=== PATIENT | female | born 1950 | race African-American/Black ===

== ENCOUNTER 2019-03-31 06:24 | Emergency (ER) | payer OTHER ==
[~2019-03-31] VITALS: Ht 157.5 cm; Wt 72.6 kg
[~2019-03-31 06:24] MED LIST: BENADRYL25 MG PO; DYRENIUM100 MG PO; FLONASE 0.05%50 MCG NASAL; MAXZIDE-25 MG1 EACH PO; MEDROL DOSPAK21 TAB PO; PEPCID20 MG PO; PROTONIX40 M2 PO; TRAMADOL 50 MG50 MG PO; TRIAMCINOLONE A15 G1 TP; [UNRECOGNIZED DRUG - OTHER]
[2019-03-31] MEDS ORDERED: OMEPRAZOLE40 MG PO (06:33)
[2019-03-31] MEDS ORDERED: CLARITIN10 MG PO (06:33)
[2019-03-31] MEDS ORDERED: ALENDRONATE SOD70 MG PO (06:33)
[2019-03-31 06:55] LABS: ABSOLUTE NEUTROPHILS 2.2 thou/uL (1.4-8.2); BASOPHILS 1.4 % (0.0-2.0); EOSINOPHILS 4.9 % (0.0-3.0); HEMATOCRIT 41.6 % (37.0-47.0); HEMOGLOBIN 13.4 gm/dL (12.0-15.0); LYMPHOCYTES 38.7 % (24.0-44.0); MCH 25.1 pg (26.0-34.0); MCHC 32.2 g/dL (28.0-37.0); MCV 78.1 fL (80.0-100.0); MONOCYTES 8.8 % (1.0-8.0); PLATELET COUNT 132 thou/uL (150-400); POLYS 46.2 % (36.0-66.0); RBC 5.33 mil/uL (4.20-5.00); RDW 15.4 % (10.5-14.5); WBC 4.7 thou/uL (4.0-11.0)
[2019-03-31 07:04] LABS: POTASSIUM 3.8 mmol/L (3.5-5.1)
[2019-03-31 07:10] LABS: ALBUMIN 3.5 g/dL (3.4-5.0); TOTAL BILIRUBIN 0.5 mg/dL (<0.1-1.0); TOTAL PROTEIN 7.2 g/dL (6.4-8.2)
[2019-03-31 07:43] VITALS: BP 151/78
== END 2019-03-31 08:04 | disposition home or self-care (01) ==
LOC: ER 06:24
PROVIDERS: Emergency Medicine
DX: T17.328A Food in larynx causing other injury, initial encounter (principal); I10 Essential (primary) hypertension; J45.909 Unspecified asthma, uncomplicated; K74.60 Unspecified cirrhosis of liver; Z90.710 Acquired absence of both cervix and uterus; Z98.890 Other specified postprocedural states; Z88.8 Allergy status to other drugs, medicaments and biological substances; X58.XXXA Exposure to other specified factors, initial encounter; Y93.89 Activity, other specified; Y92.89 Other specified places as the place of occurrence of the external cause; Y99.8 Other external cause status

== ENCOUNTER 2019-04-25 22:41 | Emergency (ER) | payer OTHER ==
[~2019-04-25] VITALS: Ht 157.5 cm; Wt 72.6 kg
[~2019-04-25 22:41] MED LIST changes: +ALENDRONATE SOD70 MG PO; +CLARITIN10 MG PO; +OMEPRAZOLE40 MG PO
[2019-04-25 23:39] LABS: ABSOLUTE NEUTROPHILS 7.5 thou/uL (1.4-8.2); BASOPHILS 0.3 % (0.0-2.0); EOSINOPHILS 1.3 % (0.0-3.0); HEMATOCRIT 43.9 % (37.0-47.0); HEMOGLOBIN 14.2 gm/dL (12.0-15.0); LYMPHOCYTES 5.2 % (24.0-44.0); MCH 25.1 pg (26.0-34.0); MCHC 32.3 g/dL (28.0-37.0); MCV 77.6 fL (80.0-100.0); MONOCYTES 4.7 % (1.0-8.0); PLATELET COUNT 133 thou/uL (150-400); POLYS 88.5 % (36.0-66.0); RBC 5.66 mil/uL (4.20-5.00); RDW 14.6 % (10.5-14.5); WBC 8.5 thou/uL (4.0-11.0)
[2019-04-25 23:49] LABS: POTASSIUM 3.4 mmol/L (3.5-5.1)
[2019-04-25 23:54] LABS: ALBUMIN 3.7 g/dL (3.4-5.0); DIRECT BILIRUBIN 0.3 mg/dL (<0.1-0.3); TOTAL PROTEIN 7.6 g/dL (6.4-8.2)
[2019-04-26 00:42] LABS: URINE BILIRUBIN NEGATIVE (Negative); URINE BLOOD NEGATIVE (Negative); URINE CLARITY CLEAR; URINE COLOR YELLOW; URINE GLUCOSE-RANDOM* NEGATIVE (Negative); URINE KETONES TRACE (Negative); URINE LEUKOCYTES-REFLEX NEGATIVE (Negative); URINE NITRITE-REFLEX NEGATIVE (Negative); URINE PROTEIN (DIPSTICK) NEGATIVE (Negative); URINE UROBILINOGEN 0.2 E.U./dl (0.2-1.0)
[2019-04-26] MEDS ORDERED: ZOFRAN ODT4 MG PO (04:25)
[2019-04-26] MEDS ORDERED: CARAFATE 1 GM TA1 G1 PO (04:25)
[2019-04-26 05:00] VITALS: BP 133/72
== END 2019-04-26 05:00 | disposition home or self-care (01) ==
LOC: ER 22:41
PROVIDERS: Emergency Medicine
DX: R10.84 Generalized abdominal pain (principal); I10 Essential (primary) hypertension; K74.60 Unspecified cirrhosis of liver; J45.909 Unspecified asthma, uncomplicated; Z90.710 Acquired absence of both cervix and uterus; Z98.890 Other specified postprocedural states; Z88.8 Allergy status to other drugs, medicaments and biological substances